=== PATIENT | female | born 1995 | race Caucasian/White ===

== ENCOUNTER 2018-01-04 20:14 | Inpatient (IN) | payer MEDICAID, SELFPAY ==
[2018-01-04 22:13] LABS: ROM Plus Positive
--- NOTE | 2018-01-05 00:55 | W.PM.HP.N ---
37 week with rom ~6-7 pm today - mild ctx since, clear fluid excellent fmvmt. no lopes, visual changes, fever 3-4 days red/warm tender r lower leg/calf hep c positive, poor veins due to needle use in past gbs neg PFSH Family History Grandfather Diabetes Grandmother Personal history of malignant neoplasm Heart disease Family History Grandfather Diabetes Grandmother Personal history of malignant neoplasm Heart disease Social History Smoking/Tobacco Use Status: Current every day Social History Smoking/Tobacco Use Status: Current every day Meds Home Medications Medication Instructions Recorded Confirmed Type oxycodone 10 mg PO Q6H PRN #20 tab-cap 04/28/14 01/04/18 History [id number] oil 1 tab 01/04/18 History [ Gummy] buprenorphine-naloxone [Suboxone] 2 film SUBLINGUAL Q24H 01/04/18 01/04/18 History sertraline [Zoloft] 150 mg 01/04/18 History Allergies Allergy/AdvReac Type Severity Reaction Status Date / Time codeine AdvReac Intermediate Nausea Unverified 04/22/14 10:21 Exam Narrative Exam Narrative: cervix 4-5 cm, -1 station, oa, 50%, no bag/membranes noted r lower leg - superficial cellulitis, redness, tender - ?early subcut abscess no homans sign abd - non-tender with good uterine ctx - mild at this point see strip - cat 1, baseline ~135, moderate variability, no decels, good accels, poor veins assessment: early labor - mild/mod ctx pattern - not consistent interval rom - clear pos hep c - goal - reduce time with rom to reduce risk of vertical hep c transmission suboxone dose stable during - no cravings dfys involved \ plan: try for iv access - some delay given veins - when available add pitocin to generate stronger labor pattern oral keflex for cellulitis r leg - small risk of mrsa - may need to switch to bactrim post cont suboxone - she has strips on hand nitrous for pain discussed - right now no need. s. genereaux Results Labs : 01/05/18 00:49 Laboratory Results - last 24 hr 01/04/18 19:28 Membranes Rupture Positive
[2018-01-05 01:43] LABS: HCT 30.6 % (36.0-46.0); HGB 10.7 g/dL (12.0-15.5); Mean Corpuscular Hemoglobin 28.4 pg (27.0-33.0); Mean Corpuscular Volume 81.2 fL (80-95); Mean Platelet Volume 10.3 fL (8.0-11.0); Platelet Count 321 x1000/uL (130-400); RBC 3.77 m/cumm (4.00-5.20); RBC Distribution Width 13.2 % (11.7-14.6); White Blood Cell Count 10.02 k/cumm (4.4-10.8)
--- NOTE | 2018-01-05 06:39 | W.PM.OP ---
Operative Note Procedure Description: delivery note: 37 week iup - steady progress from 4 cm to complete over 4-5 hrs initial pushing pokey - with rupture of forebag better effort - led to - easy shoulders intact perineum - delayed cord clap to mat abd/chest - for [id number] care to not lacerate - only intervention was bulb suction on perineum cord bloods obtained - 3 v cord - spont intact placenta two doses in pit - ebl 300 apgars 7/8 wt 6#2oz inityial exam benign firm fundus 1 below umbilicus no lacerations/no repair
--- NOTE | 2018-01-05 06:46 | ROE_ITS ---
Operative Note Procedure Description: delivery note: 37 week iup - steady progress from 4 cm to complete over 4-5 hrs initial pushing pokey - with rupture of forebag better effort - led to - easy shoulders intact perineum - delayed cord clap to mat abd/chest - for [id number]-qc-hudr care to not lacerate - only intervention was bulb suction on perineum cord bloods obtained - 3 v cord - spont intact placenta two doses in pit - ebl 300 apgars 7/8 wt 6#2oz inityial exam benign firm fundus 1 below umbilicus no lacerations/no repair
[2018-01-05] MEDS: Cephalexin 500 MG CAP PO ×3 (08:57→20:50)
[2018-01-05] MEDS: Buprenorphine/Naloxone 8 mg/2 mg FILM 2 EACH SL (10:23)
[2018-01-06] MEDS: Ibuprofen 600 MG TAB PO ×2 (04:51→18:03)
[2018-01-06 08:18] LABS: HCT 29.6 % (36.0-46.0); HGB 10.2 g/dL (12.0-15.5); Mean Corp. HGB Concentration 34.5 g/dL (32.0-36.0); Mean Corpuscular Hemoglobin 28.5 pg (27.0-33.0); Mean Corpuscular Volume 82.7 fL (80-95); Mean Platelet Volume 10.8 fL (8.0-11.0); Platelet Count 305 x1000/uL (130-400); RBC 3.58 m/cumm (4.00-5.20); RBC Distribution Width 13.2 % (11.7-14.6)
[2018-01-06] MEDS: Buprenorphine/Naloxone 8 mg/2 mg FILM 2 EACH SL (08:30)
[2018-01-06] MEDS: Cephalexin 500 MG CAP PO ×2 (08:58→18:03)
[2018-01-06] MEDS: Acetaminophen 325 MG TAB 650 MG PO (08:58)
--- NOTE | 2018-01-06 17:11 | W.PM.DS.N ---
Discharge Plan Discharge Details Reason For Visit: TERM R/O LABOR Admit Date/Time: 01/04/18 22:34 Admit Provider: Miky Hernández Attending Provider: Miky Hernández Primary Care Provider: Florence,Local Home Meds and New Rx's Prescriptions: No Action oxycodone 5 MG capsule 10 mg PO Q6H PRN Qty: 20 RF: 0 sertraline [Zoloft] 100 mg Tablet 150 mg RF: 0 buprenorphine-naloxone [Suboxone] 4-1 mg Film 2 film SUBLINGUAL Q24H RF: 0 [id number] oil [ Gummy] 400 mcg-35 mg -25 mg-5 mg Tablet,Chewable 1 tab RF: 0 Exam Narrative Exam Narrative: Myra delivered healthy female - 7/8 wt 6#2 oz breast feeding off to slow start, she has pump at home if need be will need home health referral dfys on the case and involved - 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 [facility] myra has suboxone and zoloft for on going medication close f/u as out pt through [employer] [facility] progtram lochia significantly decreased no pain, nipples ok bowels and all self care in hand fully ambulatory she tolerated no cigs via nicotine inhaler there was concern re two episodes - one when she and her mom were smoking cigs in bathrrom of adjoining patient room second - she and her mom may have been smoking marijuana in her own room Both showed poor judgement and may have in part been as a result of Fifi's input/presence - she has her own substance abuse issues meds as below we'll set up f/u appts for next week. her d/c exam is good - no swelling, leg infection is fine - resolved - ok to stop oral abx DS: Data Vitals/I&O Vitals and I&O: Vital Signs Pain Level 3 01/06/18 08:58 Labs on day of discharge: Labs from last 24 hours 01/06/18 06:55 WBC 10.80 RBC 3.58 L Hgb 10.2 L Hct 29.6 L MCV 82.7 MCH 28.5 MCHC 34.5 RDW 13.2 Plt Count 305 MPV 10.8 PFSH Family History Grandfather Diabetes Grandmother Personal history of malignant neoplasm Heart disease Family History Grandfather Diabetes Grandmother Personal history of malignant neoplasm Heart disease Social History Smoking/Tobacco Use Status: Current every day Social History Smoking/Tobacco Use Status: Current every day
--- NOTE | 2018-01-06 17:18 | DSE_ITS ---
Discharge Plan Discharge Details Reason For Visit: TERM R/O LABOR Admit Date/Time: 01/04/18 22:34 Admit Provider: Miky Hernández Attending Provider: Miky Hernández Primary Care Provider: Florence,Local Home Meds and New Rx's Prescriptions: No Action oxycodone 5 MG capsule 10 mg PO Q6H PRN Qty: 20 RF: 0 sertraline [Zoloft] 100 mg Tablet 150 mg RF: 0 buprenorphine-naloxone [Suboxone] 4-1 mg Film 2 film SUBLINGUAL Q24H RF: 0 [id number] oil [ Gummy] 400 mcg-35 mg -25 mg-5 mg Tablet,Chewable 1 tab RF: 0 Exam Narrative Exam Narrative: Myra delivered healthy female - 7/8 wt 6#2 oz breast feeding off to slow start, she has pump at home if need be will need home health referral dfys on the case and involved - 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[employer] [facility] planned [facility] myra has suboxone and zoloft for on going medication close f/u as out pt through [facility] MAT progtram lochia significantly decreased no pain, nipples ok bowels and all self care in hand fully ambulatory she tolerated no cigs via nicotine inhaler there was concern re two episodes - one when she and her mom were smoking cigs in bathrrom of adjoining patient room second - she and her mom may have been smoking marijuana in her own room Both showed poor judgement and may have in part been as a result of Fifi's input/presence - she has her own substance abuse issues meds as below we'll set up f/u appts for next week. her d/c exam is good - no swelling, leg infection is fine - resolved - ok to stop oral abx DS: Data Vitals/I&O Vitals and I&O: Vital Signs Pain Level 3 01/06/18 08:58 Labs on day of discharge: Labs from last 24 hours 01/06/18 06:55 WBC 10.80 RBC 3.58 L Hgb 10.2 L Hct 29.6 L MCV 82.7 MCH 28.5 MCHC 34.5 RDW 13.2 Plt Count 305 MPV 10.8 PFSH Family History Grandfather Diabetes Grandmother Personal history of malignant neoplasm Heart disease Family History Grandfather Diabetes Grandmother Personal history of malignant neoplasm Heart disease Social History Smoking/Tobacco Use Status: Current every day Social History Smoking/Tobacco Use Status: Current every day
== END 2018-01-06 18:20 | disposition home or self-care (01) | DRG 806 ==
PROVIDERS: Family Medicine; Admitting Provider Family Medicine; Visit Provider Family Medicine
DX: O98.42 Viral hepatitis complicating childbirth (principal); O99.324 Drug use complicating childbirth; Z37.0 Single live birth; F11.20 Opioid dependence, uncomplicated; L03.115 Cellulitis of right lower limb; O99.334 Smoking (tobacco) complicating childbirth; B19.20 Unspecified viral hepatitis C without hepatic coma; F17.210 Nicotine dependence, cigarettes, uncomplicated; Z3A.37 37 weeks gestation of pregnancy
CPT/HCPCS: 36415; 84112; 85027; 86850; 86900; 86901; 99223; 99238; G0378

== ENCOUNTER 2018-01-09 16:35 | Outpatient (REF) | payer MEDICAID, SELFPAY ==
[2018-01-09 19:31] LABS: *AMPHETAMINES SCREEN URINE Negative (Negative); *BARBITURATES SCREEN URINE Negative (Negative); *BENZODIAZEPINES SCREEN URINE Negative (Negative); Cannabinoids THC POSITIVE (Negative); Cocaine Screen,Urine Negative (Negative); METHADONE URINE SCREEN Negative (Negative); OPIATES URINE SCREEN Negative (Negative)
[2018-01-09 19:43] LABS: Tricyclic Antidepressants Negative (Negative)
== END 2018-01-09 16:55 ==
LOC: LBN 16:35
PROVIDERS: Visit Provider Family Medicine
DX: F11.20 Opioid dependence, uncomplicated (principal)
CPT/HCPCS: 80307

== ENCOUNTER 2024-03-10 01:08 | Emergency (ER) | payer MEDICAID, SELFPAY ==
[2024-03-10 01:22] VITALS: BP 140/93; PULSE 85; RESP 18; TEMP 37.1; O2SAT 99
[2024-03-10 01:35] LABS: Bilirubin Negative (Negative); Blood Negative (Negative); Clarity Clear (Clear); Glucose Negative (Negative); Ketones Negative (Negative); Leukocyte Esterase Negative (Negative); Nitrite Negative (Negative); Specific Gravity >= 1.030 (1.005-1.025); Urobilinogen 0.2 mg/dL (Up to 0.2); pH 5.5 (5-8)
[2024-03-10] MEDS: Acetaminophen 500 MG TAB 1000 MG PO (01:36)
[2024-03-10] MEDS: Ketorolac 15 MG/ML VIAL IM (01:37)
--- NOTE | 2024-03-10 01:52 | DI.RAD_ITS ---
Exam(s) XR HAND LT COMPLETE EXAM: XR HAND LT COMPLETE CLINICAL HISTORY: pain/swelling pointer finger. TECHNIQUE: 2D digital imaging was performed of the left hand. Three views were obtained. AP, later al and oblique views were obtained. COMPARISON: No exams were available for comparison FINDINGS: BONES: No acute fracture is present. No bony destructive lesion is seen. JOINTS: No dislocation present. SOFT TISSUE: There is soft tissue swelling of the index finger. No radiopaque foreign body or soft t issue gas is present. IMPRESSION: Soft tissue swelling of the index finger. No fracture, dislocation, soft tissue gas or foreign body. DATA REPOSITORY: RADIATION DOSE DELIVERED:
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
[2024-03-10] MEDS: cefTRIAXone 1 GM VIAL IM (02:04)
[2024-03-10] MEDS: Sulfameth/Trimeth DS TAB 1 TAB PO (02:04)
[2024-03-10] MEDS: Water,Injection,Sterile 10 ML VIAL (02:08)
--- NOTE | 2024-03-10 02:24 | DI.VRAD_ITS ---
PROCEDURE INFORMATION: Exam: XR Left Hand Exam date and time: 03/10/2024 1:48 AM Age: 28 years old Clinical indication: Other: Pain/swelling pointer finger TECHNIQUE: Imaging protocol: Radiologic exam of the left hand. Views: 3 or more views. COMPARISON: No relevant prior studies available. FINDINGS: Bones/joints: No fracture, dislocation, osseous erosion, or suspicious osseous lesion. Soft tissues: Diffuse swelling of the index finger. No discernible soft tissue gas or foreign body. IMPRESSION: 1. Diffuse swelling of the index finger. No discernible soft tissue gas or foreign body. 2. No fracture, dislocation, osseous erosion, or suspicious osseous lesion. Dictated and Authenticated by: Lance Thakkar MD. Orderin Kajla Cruz MD
[2024-03-10] MEDS: Cephalexin 500 MG CAP, 4 CAPS/BTL PO (03:09)
[2024-03-10] MEDS: Sulfameth/Trimeth DS, 2 TABS/BTL 1 TAB PO (03:09)
== END 2024-03-10 03:18 | disposition home or self-care (01) ==
PROVIDERS: Emergency Provider Student in an Organized Health Care Education/Training Program
DX: L03.012 Cellulitis of left finger (principal); F17.210 Nicotine dependence, cigarettes, uncomplicated
CPT/HCPCS: 96372; 99284; 73130; 81003; J0696; J1885